=== PATIENT | female | born 1965 | race Caucasian/White ===

== ENCOUNTER 2021-06-25 07:12 | Emergency (ER) | payer BC, OTHER ==
[2021-06-25] MEDS ORDERED: HYDROmorphone 1 MG/ML Syringe IM ONE (07:23)
[2021-06-25] MEDS ORDERED: Propofol 200 MG/20 ML SDV IVPUSH ONE (08:00)
[2021-06-25] MEDS ORDERED: Ibuprofen 600 MG Tab PO ONE (09:08)
== END 2021-06-25 10:00 | disposition home or self-care (01) ==
LOC: JP.ED 07:12
DX: S52.532A Colles' fracture of left radius, initial encounter for closed fracture (principal); Z88.2 Allergy status to sulfonamides; Z88.1 Allergy status to other antibiotic agents; W00.9XXA Unspecified fall due to ice and snow, initial encounter
CPT/HCPCS: 25600; 73100; 73110; 96372; 99283; A9270; J1170; J2704